=== PATIENT | male | born 1940 | race Caucasian/White ===

== ENCOUNTER 2018-04-16 09:05 | Day surgery (SDC) | payer OTHER ==
[2018-04-08 13:52] VITALS: BMI 35.0
--- NOTE | 2018-04-08 14:41 | PAT Medication Instructions ---
Service Date Apr 08, 2018. Current Home Medication List Albuterol Hfa (Ventolin Hfa), 1-2 PUFFS INH Q4H PRN for Shortness of Breath Allopurinol (Zyloprim), 100 MG PO QAM Aspirin (Aspirin Chewable), 81 MG PO HS Atorvastatin (Lipitor), 20 MG PO HS Calcitriol (Rocaltrol Cap), 0.25 MCG PO QAM Carvedilol (Coreg), 12.5 MG PO BID Famotidine (Pepcid), 20 MG PO QAM Furosemide (Lasix), 20 MG PO QAM Hydralazine Hcl (Apresoline), 50 MG PO BID Lisinopril (Prinivil), 10 MG PO QAM Tiotropium [place] (Spiriva Handihaler), 1 CAP INH HS Medication Instructions For Your Scheduled Surgery - Check with surgeon and prescribing physician for instructions: Aspirin (Aspirin Chewable), 81 MG PO HS - Hold the following medications the morning of surgery: Calcitriol (Rocaltrol Cap), 0.25 MCG PO QAM Famotidine (Pepcid), 20 MG PO QAM Furosemide (Lasix), 20 MG PO QAM Lisinopril (Prinivil), 10 MG PO QAM - Take the following medications the morning of surgery with a sip of water: Hydralazine Hcl (Apresoline), 50 MG PO BID Carvedilol (Coreg), 12.5 MG PO BID Albuterol Hfa (Ventolin Hfa), 1-2 PUFFS INH Q4H PRN for Shortness of Breath (if needed) Allopurinol (Zyloprim), 100 MG PO QAM - Take the following medications as scheduled the night before surgery: Tiotropium [place] (Spiriva Handihaler), 1 CAP INH HS Hydralazine Hcl (Apresoline), 50 MG PO BID Carvedilol (Coreg), 12.5 MG PO BID Atorvastatin (Lipitor), 20 MG PO HS Albuterol Hfa (Ventolin Hfa), 1-2 PUFFS INH Q4H PRN for Shortness of Breath (if needed) If you have any questions please call us at [phone] or [phone] or [phone]
--- NOTE | 2018-04-14 16:48 | History and Physical ---
History & Physical Date Apr 14, 2018. Chief Complaint Right knee pain, right foot pain History of Present Illness Mr Cartagena is a 77 year old male who is here for pre-op evaluation prior to right knee arthroscopy and right foot midfoot cortisone injection at [facility] 2017. Currently the patient states that the symptoms are moderate-severe. The pain is described as aching, discomforting and throbbing. The symptoms are aggravated by daily activities, ascending stairs, descending stairs, driving, first steps while awake, kneeling, movement, repetitive activities, sleeping on the affected side, walking and squatting. Gabriel states that the symptoms are relieved by no specific activity. In addition to right knee pain the patient is also experiencing decreased mobility, difficulty bending, difficulty going to sleep, limping, nighttime awakening, pain, stiffness, tenderness and weakness. Pertinent negatives include chills and fever. The patient has had a previous x- ray and MRI of both his knee and foot. MRI of the knee is showing medial meniscus tear as well as degenerative joint disease, MRI of the right foot showing midfoot DJD. Past Medical/Surgical History Coronary Artery Disease history of ND 2012, history of catheterization stent 2012 Hypertension COPD Sleep Apnea History of Sciatica positive smoking history x 60 years history of prostate cancer, removal of prostate 2001 Removal Kidney July 2016 Cholecystectomy early 2002 Tonsils 194 Additional History Hypertension: Yes Bleeding Tendencies: No Infectious Diseases: No Allergies Coded Allergies: Latex1 -Allergic Contact Dermititis (Verified Allergy, Unknown, RASHY, 07/17) Home Medications Scheduled Allopurinol (Zyloprim), 100 MG PO QAM Aspirin (Aspirin Chewable), 81 MG PO HS Atorvastatin (Lipitor), 20 MG PO HS Calcitriol (Rocaltrol Cap), 0.25 MCG PO QAM Carvedilol (Coreg), 12.5 MG PO BID Famotidine (Pepcid), 20 MG PO QAM Furosemide (Lasix), 20 MG PO QAM Hydralazine Hcl (Apresoline), 50 MG PO BID Lisinopril (Prinivil), 10 MG PO QAM Tiotropium [place] (Spiriva Handihaler), 1 CAP INH HS Scheduled PRN Albuterol Hfa (Ventolin Hfa), 1-2 PUFFS INH Q4H PRN for Shortness of Breath Physical Examination Skin: warm/dry, no rash Eyes: normal inspection, EOMI, sclerae normal ENT: normal ENT inspection, pharynx normal Head: normocephalic, atraumatic Respiratory/Chest: normal breath sounds, no respiratory distress Cardiovascular: regular rate, rhythm, no edema, no murmur Addiitonal Comments: Physical Exam Exam Findings Details Ankle ROM R * Active ROM - Factors: pain, Description: active painful range of motion. Knee ROM L * Active ROM - Flexion: 135 degrees, Extension: 0 degrees, Factors: normal, Description: active pain free range of motion. Passive ROM - Flexion: 135 degrees, Extension: 0 degrees, Factors: normal, Description: passive pain free range of motion. Knee ROM R * Active ROM - Flexion: 120 degrees, Extension: 0 degrees, Factors: pain, Description: active painful range of motion. Passive ROM - Flexion: 125 degrees, Extension: 0 degrees, Factors: normal, Description: passive pain free range of motion. Strength LE Normal Strength Description - Normal lower extremity: Bilateral. Knee * Inspection - Gait: antalgic. Alignment - Right: neutral, Left: neutral. Ecchymosis - Right: none, Left: none. Effusion - Right: mild, supra-patella, Left: negative. Swelling - Right: none, Left: none. Flexibility - Right: normal , Left: normal. Maximum tenderness - Right: medial joint line, Left: non- tender. Patella exam - Crepitation - Right: mild, Left: negative. Patella position - Right: neutral, Left: neutral. Tilt - Right: normal, Left: normal. Gaston's - medial - Right: Positive. Knee Comments No calf tenderness, DP+2 Knee Normal Inspection - Atrophy - Right: Absent, Left: Absent. Skin - Right: Normal, Left: Normal. Patella exam - Apprehension - Right: Negative, Left: Negative. Q-angle - Right: Normal, Left: Normal. Sal's - Right: Negative, Left: Negative. [facility]'s - lateral - Right: Negative, Left: Negative. [facility] 's - medial - Left: Negative. Posterior drawer - Right: Negative, Left: Negative. Reverse pivot-shift - Right: Negative, Left: Negative. Sag sign - Right: Negative, Left: Negative. Anterior drawer - Right: Negative, Left: Negative. Valgus stress - Right: Negative, Left: Negative. Varus stress - Right : Negative, Left: Negative. Extensor lag - Right: Normal, Left: Normal. Ankle * Quick exams - Right: Midfoot Arthritis. Alignment - Midfoot - Right: normal. Skin - Ecchymosis - Right: none. Lesion - Right: absent. Swelling - Right: mild, midfoot. Other exams - Right - Type: crepitus, Result: absent. Other exams - Right - Type: deformities, Result: dorsal prominence in midfoot. Other exams - Right - Type: flexibility, Result: normal. Tenderness - Primary - Right: midfoot. Ankle Normal Tests - Charity's sign - Right: Negative. Neurovascular LE Normal Neurovascular examination including reflexes, sensation , and pulses is within normal limits. MRI reviewed, showing medial meniscus tear right knee and mild degenerative changes, right foot MRI showing degenerative changes midfoot. Diagnosis 1. Assessment Complex tear of medial meniscus of right knee as current injury, subsequent encounter (S87.041D). Patient Plan MRI reviewed with patient showing medial meniscus tear as well as degenerative changes, risks/benefits of procedure were discussed in detail, at this point will proceed with right knee scope, PMM at [facility]. will begin outpatient PT beginning POD #2, place on ASA daily for 1 month, will also provide Rx for Roberts for break through pain. 2. Assessment Arthritis, midfoot (M19.079). right foot midfoot cortisone injection.
[~2018-04-16] VITALS: Ht 185.4 cm; Wt 120.5 kg
[~2018-04-16 09:05] MED LIST: ALLO100T PO; ASPCH81X PO; ATOR-54 PO; CALC0.2510 PO; CARV12.52 PO; CEFAZOLIN 3000MG IV PUSH 22.5 ML IV SCH; FAMO20TA11 PO; FURO20TA PO; HYDR-4717 PO; LACTATED RINGER'S 1000ML 1,000 ML IV SCH; LISI10TA PO; SPRIN/30 INH; VNTHFA/IN INH
[2018-04-16 09:49] VITALS: BP 174/89; PULSE 54; TEMP 36.7; O2SAT 97; Ht 185.4 cm; Wt 120.5 kg
[2018-04-16] MEDS ORDERED: FENTANYL CITRATE INJ 50 MCG/1 ML 2 ML VIAL ONE (10:42)
[2018-04-16] MEDS ORDERED: MIDAZOLAM HCL 1 MG/ML 2ML VIAL ONE (10:43)
--- NOTE | 2018-04-16 11:15 | History & Physical Bridge Note ---
H&P Re-Evaluation Bridge Note: I have examined the patient, reviewed the History & Physical and in the interval since the performance of the History & Physical I have noted the following changes of clinical significance: No changes noted
--- NOTE | 2018-04-16 11:20 | History & Physical Bridge Note ---
H&P Re-Evaluation Bridge Note: I have examined the patient, reviewed the History & Physical and in the interval since the performance of the History & Physical I have noted the following changes of clinical significance: No changes noted the injection is the right midfoot for midfoot arthritis
[2018-04-16] MEDS ORDERED: DEXAMETHASONE SOD INJ 4 MG/ML VIAL ONE (11:40)
[2018-04-16] MEDS ORDERED: ONDANSETRON INJ 2 MG/ML 2 ML VIAL ONE (11:40)
[2018-04-16] MEDS ORDERED: SUCCINYLCHOLINE CHLORIDE 20 MG/ML 10 ML VIAL IV ONE (11:40)
[2018-04-16] MEDS ORDERED: PROPOFOL IV EMULSION 10 MG/ML 20 ML VIAL ONE ×2 (11:40→13:15)
[2018-04-16] MEDS ORDERED: ALBUTEROL HFA INHALER 8.5 GM INH ONE (12:35)
[2018-04-16] MEDS ORDERED: METHYLPREDNISOLONE ACETATE 80 MG/ML VIAL ONE (12:40)
[2018-04-16] MEDS ORDERED: BUPIVACAINE 0.5 % 5 MG/1 ML PF 10ML VIAL ONE ×2 (12:40)
[2018-04-16] MEDS ORDERED: SODIUM CHLORIDE 0.9% 1000ML 1,000 ML IV SCH (13:02)
--- NOTE | 2018-04-16 13:07 | Discharge Instructions ---
Discharge Instructions Date of Service Apr 16, 2018. Visit Reason for Visit: Other Tear Of Medial Meniscus Right Knee,Arthritis Discharge Discharge Diagnosis / Problem: right knee medial meniscus tear Discharge Goals Goal(s): Decrease discomfort, Improve function, Increase independence Activity Recommendations Activity Limitations: as noted below Weightbearing Status: Right weightbearing (as tolerated) Anesthesia . Post Anesthesia Instructions: If you have had General Anesthesia or IV Sedation: * Do not drive today. * Resume driving when surgeon permits. * Do not make important decisions or sign legal documents today. * Call surgeon for: 1. Temperature elevations greater than 101 degrees F. 2. Uncontrollable pain. 3. Excessive bleeding. 4. Persistent nausea and vomiting. 5. Medication intolerance (nausea, vomiting or rash). * For nausea and vomiting use only clear liquids such as: tea, soda, bouillon until nausea subsides, then gradually increase diet as tolerated. * If you have any concerns or questions, call your surgeon's office. If physician is unavailable and it is an emergency, call 911 or go to the nearest emergency room. . Instructions / Follow-Up Instructions / Follow-Up ACTIVITY RECOMMENDATIONS: * You may walk on the leg with or without crutches as comfort permits. * Bending of the knee should start at once. * Do not shower for 48 hours following surgery. SPECIAL CARE INSTRUCTIONS: * You may cleanse the skin adjacent to the small wounds with soap and water at the time of the first dressing change. * The application of an ice bag to the front and sides of the knee will decrease swelling and discomfort for the first 48 hours. * The small incisions may be sore and develop bruising. This bruising does not require any special care. SPECIAL PRECAUTIONS: * If you experience unusual pain unrelieved by prescriptions, temperature elevation (100 degrees F. or above) or progressive swelling or bleeding, you should contact our office at for further evaluation. * You may have been prescribed pain medication. If you experience nausea and/or fine skin rash, discontinue this medication and contact our office at for an alternate medication. DRESSING: * Dressing should be comfortable and absorb any leakage of fluid and/or blood. * The dressing may become moist or bloodstained. * Dressing may be removed _24 hours_ after surgery and bandaids placed over the small surgical incisions. If can be removed sooner if it becomes very soiled or loose. * Bandaids may be used over next several days as needed and can be discontinued when there is not further drainage from the wounds. FOLLOW UP VISIT: If appointment is not already scheduled: Please call [facility] to make a follow-up appointment for your surgery at . Diet Recommendations Recommended Home Diet: resume previous diet Pending Studies Studies pending at discharge: no Medical Emergencies . Who to Call and When: Medical Emergencies: If at any time you feel your situation is an emergency, please call 911 immediately. . Non-Emergent Contact Non-Emergency issues call your: Primary Care Provider, Surgeon . . "Provider Documentation" section prepared by David Shay. . [place] Drug Monitoring Program Search Results: patient reviewed within database, no issues identified
[2018-04-16] MEDS ORDERED: HYDR-5688 PO (13:10)
[2018-04-16] MEDS ORDERED: HydrALAZINE HCL 20 MG/ML VIAL ONE (13:10)
[2018-04-16] MEDS ORDERED: HYDROCODONE/ACETAMIN 5/325MG TAB PO PRN ×2 (13:15)
[2018-04-16] MEDS ORDERED: ONDANSETRON INJ 2 MG/ML 2 ML VIAL IV PRN ×2 (13:15→13:45)
--- NOTE | 2018-04-16 13:21 | [facility] Post Operative Brief Note ---
Immediate Operative Summary Operative Date Apr 16, 2018. Pre-Operative Diagnosis Complex tear of medial meniscus of right knee. Right midfoot arthritis. Post-Operative Diagnosis Same as preoperative diagnosis plus grade IV degenerative joint disease of right knee. Procedure(s) Performed Right midfoot injection. Right knee arthroscopy with partial medial and partial lateral meniscectomy, tricompartmental chondroplasty. Surgeon Dr. Rai Veneer Cutter Surgeon(s) None Estimated Blood Loss 1 ml Findings Consistent with Post-Op Diagnosis Specimens No specimens Drains None Anesthesia Type General Complication(s) none Disposition Disposition: Recovery Room / PACU
--- NOTE | 2018-04-16 13:23 | [facility] Operative Report ---
Operative Report Operative Date Apr 16, 2018. Pre-Operative Diagnosis Complex tear of medial meniscus of right knee. Right midfoot arthritis. Post-Operative Diagnosis Same as preoperative diagnosis plus grade IV degenerative joint disease of right knee. Procedure(s) Performed Right midfoot injection. For midfoot DJD Lisfranc joint injection of 1/2 cc 40 mg Depo-Medrol 2 cc of quarter percent plain Marcaine Right knee arthroscopy with partial medial and partial lateral meniscectomy, tricompartmental chondroplasty. Grade 3 and 4 global changes medial compartment lateral compartment patellofemoral compartment Surgeon Dr. Rai Warehouse Laborer Surgeon(s) None Estimated Blood Loss 1 ml Findings 5 arthroscopy patient had evidence of complex tear posterior horn meniscus complex tear posterior horn lateral meniscus partial posterior horn medial meniscectomy performed as well as chondroplasty for global grade 3 4 degenerative changes tricompartmentally patient is no response to conservative therapy Specimens No specimens Drains None Anesthesia Type General Complication(s) none Disposition Recovery Room / PACU Indications Patient presents with complaints of pain about his right midfoot as well as right knee pain with large effusion is medial joint line pain tenderness lateral joint pain status post Lan circumduction findings noted MRI scan shows a complex tear of the posterior horn medial meniscus been unresponsive to bracing corticosteroid injection activity modification and rest presents for knee arthroscopy the above findings were noted time surgery were consistent with the MRI findings is that of a complex tear posterior medial meniscus lateral meniscus there is grade 4 eburnated bone in the patellofemoral joint was worse when MRI appearance was also some grade 3 changes globally involving the medial compartment Description of Procedure After proper prepping draping the right lower extremity are scop examination beginning suprasellar fossa region from a dictation to be grade 4 eburnated bone complex performed back to stable margin for some loose debris floating free within this portion of the knee joint the medial meniscus is improved evidence of a complex tear is obtained partial posterior medial resection performed a series of oscillating blades and tremors and upbiters anterior posterior fusion was visualized to be intact lateral was present for the most of , so the posterior horn lateral meniscus was a partial posterior horn lateral segments performed chondroplasty of the medial femoral condyle for grade 3 global changes was noted operative matter bruise removed skin portals are closed with 4-0 nylon sterile compression dressing placed patient taken recovery in stable condition operative by Fredi. I attest to the content of the Intraoperative Record and any orders documented therein. Any exceptions are noted below.
[2018-04-16] MEDS ORDERED: ATROPINE SULFATE 0.1 MG/ML 5ML SYR IV PRN (13:45)
[2018-04-16] MEDS ORDERED: LABETALOL HCL IV 5 MG/ML 20ML IV PRN (13:45)
[2018-04-16] MEDS ORDERED: EpHEDrine SULFATE INJ 50 MG/ML AMP IV PRN (13:45)
[2018-04-16] MEDS ORDERED: FENTANYL CITRATE INJ 50 MCG/1 ML 2 ML VIAL IV PRN (13:45)
[2018-04-16] MEDS ORDERED: ALBUT/IPRATROP 3MG/0.5MG NEB 3 ML VIAL INH PRN (13:45)
--- NOTE | 2018-04-16 14:15 | Anesthesiology Progress Note ---
Anesthesia Post Op Note Date & Time Apr 16, 2018 at 14:15 Vital Signs Pain Intensity: 2 Vital Signs Past 12 Hours Date Time Temp Pulse Resp B/P (MAP) Pulse Ox O2 Delivery O2 Flow Rate FiO2 04/16/18 14:05 58 15 156/83 94 Room Air 04/16/18 13:55 60 15 162/83 98 Oxymask 10 04/16/18 13:45 60 15 151/72 98 Oxymask 04/16/18 13:36 36.1 63 16 134/79 98 Oxymask 10 04/16/18 09:49 36.7 54 20 174/89 (117) 97 Room Air Notes Mental Status: alert / awake / arousable, participated in evaluation Pt Amnestic to Procedure: Yes Nausea / Vomiting: adequately controlled Pain: adequately controlled Airway Patency, RR, SpO2: stable & adequate BP & HR: stable & adequate Hydration State: stable & adequate Anesthetic Complications: no major complications apparent
[2018-04-16 14:20] VITALS: BP 175/72; PULSE 59; TEMP 36.6; O2SAT 94
[2018-04-16 15:00] VITALS: BP 170/87; PULSE 60; O2SAT 95
[2018-04-16 15:30] VITALS: BP 171/88; PULSE 60; TEMP 36.7; O2SAT 95
--- NOTE | 2018-04-20 21:42 | EDITING REQUIRED CODING QUERY ---
CODING QUERY DATE OF SERVICE: 04/16/18 To promote full compliance with coding requirements relating to patient care, provider participation is requested in all cases of spool winder uncertainty. Please assist us with the question(s) below: Coding Question(s): CAN YOU DICTATE THE FOOT/ANKLE INJECTION SO THAT IT CAN BE CODED Physician's Response(s): Thank you Altagracia Small Principal Diagnosis: "_that condition established after study, to be chiefly responsible for occasioning the admission of the patient to the hospital for care." Co-Existing Principal Diagnosis: "_when two or more diagnoses equally meet the criteria for principal diagnosis as determined by the circumstances of admission, diagnostic work up, and/or therapy provided, and the Alphabetic Index, Tabular List, or another coding guideline does not provide sequencing direction, any one of the diagnoses may be sequenced first." "When the physician has documented what appears to be a current diagnosis in the body of the record, but has not included the diagnosis in the final diagnostic statement, the physician should be asked whether the diagnosis should be added." (Source Coding [facility] 2 QTR90. p3-4)
== END 2018-04-16 16:00 | disposition home or self-care (01) ==
LOC: C.ACU 09:05
PROVIDERS: ATTEND Orthopaedic Surgery
DX: S83.231D Complex tear of medial meniscus, current injury, right knee, subsequent encounter (principal); M19.079 Primary osteoarthritis, unspecified ankle and foot; I25.10 Atherosclerotic heart disease of native coronary artery without angina pectoris; I25.2 Old myocardial infarction; I12.9 Hypertensive chronic kidney disease with stage 1 through stage 4 chronic kidney disease, or unspecified chronic kidney disease; J44.9 Chronic obstructive pulmonary disease, unspecified; G47.33 Obstructive sleep apnea (adult) (pediatric); I50.9 Heart failure, unspecified; E66.9 Obesity, unspecified; K21.9 Gastro-esophageal reflux disease without esophagitis; M19.90 Unspecified osteoarthritis, unspecified site; E78.5 Hyperlipidemia, unspecified; N18.3 Chronic kidney disease, stage 3 (moderate); F17.200 Nicotine dependence, unspecified, uncomplicated; Q60.0 Renal agenesis, unilateral; Z91.040 Latex allergy status; Z79.82 Long term (current) use of aspirin; Z99.89 Dependence on other enabling machines and devices; Z95.5 Presence of coronary angioplasty implant and graft